=== PATIENT | male | born 1995 | race Caucasian/White ===

== ENCOUNTER 2017-01-23 00:42 | Emergency (ER) | payer MEDICAID ==
[~2017-01-23] VITALS: Ht 167.6 cm; Wt 70.0 kg
[2017-01-23 00:47] VITALS: Ht 167.6 cm; Wt 70.0 kg
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
--- NOTE | 2017-01-23 01:53 | RADRPT ---
PROCEDURE: X-ray left femur. CLINICAL INDICATION: Injury to the left lower extremity TECHNIQUE: 4 views left femur COMPARISON: None FINDINGS: Likely soft tissue disruption over the knee, without evident retained radiopaque foreign material No acute fracture or dislocation. Soft tissues otherwise unremarkable. IMPRESSION: No acute fracture. RPTAT: [facility] Physician Capri Date Time Electronically viewed and signed by Levi Schwab Physician on 01/23/2017 01:53 RS/
--- NOTE | 2017-01-23 01:54 | RADRPT ---
PROCEDURE: X-ray left knee. CLINICAL INDICATION: Injury to the left lower extremity TECHNIQUE: 3 views left knee. COMPARISON: None FINDINGS: Likely soft tissue disruption over the knee, without evident retained radiopaque foreign material No acute fracture or dislocation. Soft tissues otherwise unremarkable. IMPRESSION: No acute fracture. RPTAT: [facility] Physician Capri Date Time Electronically viewed and signed by Levi Schwab Physician on 01/23/2017 01:53 RS/
--- NOTE | 2017-01-23 01:55 | RADRPT ---
PROCEDURE: X-ray left tibia and fibula CLINICAL INDICATION: Injury to the left lower extremity TECHNIQUE: 4 views left tibia and fibula COMPARISON: None FINDINGS: Likely soft tissue disruption over the knee, without evident retained radiopaque foreign material No acute fracture or dislocation. Soft tissues otherwise unremarkable. IMPRESSION: No acute fracture. RPTAT: [facility] Physician Capri Date Time Electronically viewed and signed by Levi Schwab Physician on 01/23/2017 01:54 RS/
[2017-01-23] MEDS ORDERED: LIDOCAINE 2%/EPI MPF (SDV) 20 ML VIAL INJ ONE (02:00)
[2017-01-23] MEDS ORDERED: DIPHTH/TET/ACEL PERTUSS (ADULT) 0.5 ML VIAL IM* ONE ×2 (02:30)
[2017-01-23] MEDS ORDERED: CEFAZOLIN 1 GM/50 ML (PMX) 50 ML IVPB SCH ×2 (02:30)
[2017-01-23 02:50] VITALS: BP 108/67; PULSE 98; RESP 17
[2017-01-23] MEDS ORDERED: IBUP-1542 PO (03:45)
[2017-01-23] MEDS ORDERED: CEPH-443 PO (03:45)
== END 2017-01-23 04:06 | disposition home or self-care (01) ==
LOC: E/R 00:42
DX: S81.012A Laceration without foreign body, left knee, initial encounter (principal); F17.210 Nicotine dependence, cigarettes, uncomplicated; V18.4XXA Pedal cycle driver injured in noncollision transport accident in traffic accident, initial encounter; Z23 Encounter for immunization
CPT/HCPCS: 12004; 73550; 73562; 73590; 90471; 90715; 96374; J0690; Z7502; Z7610

== ENCOUNTER 2017-01-24 19:24 | Emergency (ER) | payer MEDICAID, OTHER ==
[~2017-01-24] VITALS: Ht 165.1 cm; Wt 70.5 kg
[~2017-01-24 19:24] MED LIST: CEPH-443 PO; IBUP-1542 PO
[2017-01-24 19:32] VITALS: Ht 165.1 cm; Wt 70.5 kg
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
== END 2017-01-24 20:42 | disposition home or self-care (01) ==
LOC: FTE 19:24
DX: Z48.01 Encounter for change or removal of surgical wound dressing (principal); F17.210 Nicotine dependence, cigarettes, uncomplicated
CPT/HCPCS: 99281